=== PATIENT | female | born 1990 | race Caucasian/White ===

== ENCOUNTER → 2019-04-23 | Outpatient (CLI) | payer BC | END | disposition home or self-care (01) | LOC: LAB 16:54 → LAB SHORT 16:54 | DX: Z34.93 Encounter for supervision of normal pregnancy, unspecified, third trimester (principal) | CPT/HCPCS: 87081; 87653 ==

== ENCOUNTER 2019-05-20 04:08 | Inpatient (IN) | payer BC ==
[~2019-05-20] VITALS: Ht 167.6 cm; Wt 88.0 kg
[2019-05-20 04:58] LABS: BASOPHILS ABSOLUTE AUTO 0.03 K/mm3 (0.00-0.23); BASOPHILS PERCENT AUTO 0 % (0-2); EOSINOPHILS ABSOLUTE AUTO 0.03 K/mm3 (0.00-0.68); EOSINOPHILS PERCENT AUTO 0 % (0-6); Hematocrit 42.6 % (33.0-51.0); Hemoglobin 14.4 g/dL (11.5-16.0); IMMATURE GRAN ABSOLUTE AUTO 0.16 K/mm3 (0.00-0.10); IMMATURE GRAN PERCENT AUTO 2 % (0-1); LYMPHOCYTES PERCENT AUTO 24 % (21-46); MONOCYTES ABSOLUTE AUTO 0.73 K/mm3 (0.16-1.47); MONOCYTES PERCENT AUTO 7 % (4-13); Mean Corpuscular HGB 31.2 pg (26.0-34.0); Mean Corpuscular HGB Conc 33.8 g/dL (31.5-36.5); Mean Corpuscular Volume 92 fL (80-100); Mean Platelet Volume 9.8 fL (9.1-12.4); NEUTROPHILS ABSOLUTE AUTO 6.79 K/mm3 (1.96-9.15); NEUTROPHILS PERCENT AUTO 67 % (41-73); Platelet Count 206 K/mm3 (150-400); RDW Coefficient Variation 13.3 % (11.7-14.2); RDW Standard Deviation 45.1 fL (35.1-46.3); Red Blood Cell Count 4.62 M/mm3 (3.80-5.20); White Blood Cell Count 10.14 K/mm3 (4.00-11.30)
[2019-05-21 05:09] LABS: BASOPHILS ABSOLUTE AUTO 0.01 K/mm3 (0.00-0.23); BASOPHILS PERCENT AUTO 0 % (0-2); EOSINOPHILS ABSOLUTE AUTO 0.01 K/mm3 (0.00-0.68); EOSINOPHILS PERCENT AUTO 0 % (0-6); Hematocrit 32.8 % (33.0-51.0); Hemoglobin 11.1 g/dL (11.5-16.0); IMMATURE GRAN ABSOLUTE AUTO 0.13 K/mm3 (0.00-0.10); IMMATURE GRAN PERCENT AUTO 1 % (0-1); LYMPHOCYTES PERCENT AUTO 15 % (21-46); MONOCYTES ABSOLUTE AUTO 1.46 K/mm3 (0.16-1.47); MONOCYTES PERCENT AUTO 9 % (4-13); Mean Corpuscular HGB 31.3 pg (26.0-34.0); Mean Corpuscular HGB Conc 33.8 g/dL (31.5-36.5); Mean Corpuscular Volume 92 fL (80-100); Mean Platelet Volume 9.5 fL (9.1-12.4); NEUTROPHILS PERCENT AUTO 74 % (41-73); Platelet Count 182 K/mm3 (150-400); RDW Coefficient Variation 13.2 % (11.7-14.2); RDW Standard Deviation 44.6 fL (35.1-46.3); Red Blood Cell Count 3.55 M/mm3 (3.80-5.20); White Blood Cell Count 15.61 K/mm3 (4.00-11.30)
--- NOTE | 2019-05-21 17:49 | NUR ---
CONSULT. BABY IS LESS THAN 24 HOURS OLD AND STARTING TO SELF WAKEN. SHE IS HANDLING BABY WELL AND CAN GET HER LATCHED ON, BUT HAS OCCASIONAL PINCHING OF NIPPLE. INSTRUCT/DEMO POSITIONING TO HELP OBTAIN AN ASYMETRIC LATCH, FURTHER WIDENING THE LATCH FOR COMFORT. INSTRUCT IN CHANGES TO EXPECT DURING THE FIRST WEEK WITH BABY AND WITH FEEDINGS AND REFERRED TO BF BOOKLET AND BF BROCHURE FOR PHOTOS AND INFORMATION. BOTH PARENTS LOVING WITH BABY. QUESTIONS ANSWERED.
--- NOTE | 2019-05-22 08:00 | NUR ---
PT . WILL CALL WHEN SHE IS FINISHED.
--- NOTE | 2019-05-22 12:20 | NUR ---
D/C HOME AMBULATING WITHOUT DIFFICULTY.
--- NOTE | 2019-05-22 13:53 | NUR ---
FOLLOW UP. LATCH IS HURTING OFF AND ON. SHE IS TRYING TO APPLY CHIN PRESSURE TO WIDEN THE LATCH AND IT WORKS SOMETIMES. INSTRUCT IN TRYING FOOTBALL POSITION AND DEMO HAND HOLDS ON BABY. BABY CURRENTLY ASLEEP IN CRIB AFTER BF. INSTRUCT TO CALL FOR ASSISTANCE NEXT FEEDING IF ANY PROBLEMS. PLANNING HOME TODAY. QUESTIONS ANSWERED. FEELING MORE CONFIDENT.
== END 2019-05-22 12:20 | disposition home or self-care (01) | DRG 768 ==
LOC: OBS 04:08 → BC 04:09 → OBS 04:49 → BC 04:51
PROVIDERS: ADMIT Family Medicine
PROC: 10E0XZZ Delivery of Products of Conception, External Approach (ICD-10-PCS; principal; 2019-05-20)
PROC: 0DQR0ZZ Repair Anal Sphincter, Open Approach (ICD-10-PCS; 2019-05-20)
DX: O99.824 Streptococcus B carrier state complicating childbirth (principal); Z37.0 Single live birth; O70.20 Third degree perineal laceration during delivery, unspecified; Z3A.39 39 weeks gestation of pregnancy
CPT/HCPCS: 36415; 85025; 86900; 86901; J0290; J1885; J2210; J3010; J7120